=== PATIENT | female | born 1975 | race Caucasian/White ===

== ENCOUNTER 2019-04-18 07:07 | Emergency (ER) | payer OTHER ==
[~2019-04-18] VITALS: Ht 154.9 cm; Wt 90.7 kg
--- NOTE | 2019-04-18 07:15 | NUR ---
Flu swab collected and sent.
[2019-04-18 07:16] VITALS: BP_SYST 131
--- NOTE | 2019-04-18 07:20 | NUR ---
pt to wr
--- NOTE | 2019-04-18 07:25 | NUR ---
Patient to ER bed 8 to gown for evaluation. Side rails up.
--- NOTE | 2019-04-18 07:35 | NUR ---
pt arrives from home w/ c/o cough, congestion, and dizzness. Lung sounds are clear upon auscultation. Will continue to monitor
--- NOTE | 2019-04-18 07:41 | NUR ---
ER at bedside examining patient.
--- NOTE | 2019-04-18 08:14 | NUR ---
Patient given written and verbal discharge instructions and verbalizes understanding. ER MD discussed with patient the results and treatment provided. Patient in stable condition. ID arm band removed. Rx of Tamiflu, Motrin, Lomitol, and Tessalon given. Patient educated on pain management and to follow up with PMD. Pain Scale 3/10. Opportunity for questions provided and answered. Medication side effect fact sheet provided.
[2019-04-18 08:22] VITALS: BP_SYST 131
== END 2019-04-18 08:14 | disposition home or self-care (01) ==
LOC: SED 07:07
DX: J11.1 Influenza due to unidentified influenza virus with other respiratory manifestations (principal)
CPT/HCPCS: 36415; 86710; 99283